=== PATIENT | male | born 1940 | race African-American/Black ===

== ENCOUNTER 2021-01-06 15:15 | Emergency (ER) | payer MEDICAID, OTHER ==
[~2021-01-06] VITALS: Ht 182.9 cm; Wt 89.4 kg
--- NOTE | 2021-01-06 16:03 | NUR ---
[id number], [facility] [place] PER EMS. SATTING 98% RA. RESPIRATION REGULAR AND UNLABORED. DENIES PAIN. WILL CONTINUE TO MONITOR THE PATIENT.
--- NOTE | 2021-01-06 16:07 | NUR ---
X-RAY TECH AT THE BEDSIDE
[2021-01-06 16:42] LABS: BASOPHILS # (AUTO) 0.1 K/uL (0.0-0.2); BASOPHILS % (AUTO) 0.8 % (0.0-2.0); EOSINOPHILS % (AUTO) 1.9 % (0.0-6.0); HEMATOCRIT 43 % (39-51); HEMOGLOBIN 13.8 g/dL (13.5-17.5); LYMPHOCYTES # (AUTO) 1.2 K/uL (0.8-4.8); MEAN CORPUSCULAR HGB CONC 32 g/dl (31.0-36.0); MEAN CORPUSCULAR VOLUME 99 fL (80-96); MONOCYTES # (AUTO) 0.4 K/uL (0.1-1.30); MONOCYTES % (AUTO) 6.3 % (2.0-12.0); NEUTROPHILS # (AUTO) 5.2 K/uL (1.8-8.9); PLATELET COUNT (AUTO) 245 K/uL (150-450); RED BLOOD CELL COUNT(AUTO) 4.39 MIL/uL (4.5-6.0)
[2021-01-06 16:52] LABS: CALCIUM, SERUM 9.2 mg/dL (8.5-10.1); CARBON DIOXIDE 19 mmol/L (21-32); CHLORIDE 105 mmol/L (98-107); CREATININE 2.6 mg/dL (0.6-1.3); GLUCOSE 95 mg/dL (74-106); POTASSIUM 4.1 mmol/L (3.5-5.1); SODIUM SERUM 140 mmol/L (136-145); UREA NITROGEN, BLOOD 21 mg/dL (7-18)
--- NOTE | 2021-01-06 17:01 | NUR ---
CALLED [facility] AND REQUESTED PT CLINICALS TO BE FAXED.
[2021-01-06 17:04] LABS: ALANINE AMINOTRANSFERASE 18 U/L (12-78); ALBUMIN 3.5 g/dL (3.4-5.0); ALKALINE PHOSPHATASE 89 U/L (46-116); ASPARTATE AMINOTRANSFERASE 17 U/L (15-37); BILIRUBIN,TOTAL 0.1 mg/dL (0.2-1.0); TOTAL PROTEIN, SERUM 7.5 g/dL (6.4-8.2)
--- NOTE | 2021-01-06 17:16 | NUR ---
THE PATIENT REFUSES VITAL SIGNS CHECK DESPITE EXPLAINING RISKS AND BENEFITS. DR SMITH AWARE.
[2021-01-06] MEDS ORDERED: ASPIRIN 81 MG TAB.CHEW PO ONE (17:30)
[2021-01-06] MEDS ORDERED: ASPIRIN 81 MG TAB.CHEW ONE (17:32)
--- NOTE | 2021-01-06 17:37 | NUR ---
ASPIRIN 162 MG PATIENT RESFUED DESPITE EXPLAINING RISKS AND BENEFITS. DR SMITH AWARE.
--- NOTE | 2021-01-06 17:58 | NUR ---
Sujatha turner in EDM - 01/06/21 at 1810 by DOUGIE CALLED [facility] AND IMAGING RESULTS TO [phone]
--- NOTE | 2021-01-06 18:12 | NUR ---
CALLED [facility] AND SET UP BLS TRANSPORT FOR PT TO [facility]. ETA [phone]
--- NOTE | 2021-01-06 19:19 | NUR ---
REPORT GIVEN TO NURSE PHAN
--- NOTE | 2021-01-06 19:41 | NUR ---
REPORT GIVEN TO EMS AT BEDSIDE
[2021-01-06 19:47] VITALS: BP 117/77
== END 2021-01-06 19:48 | disposition left against medical advice (07) ==
LOC: ER 17:24
DX: I21.4 Non-ST elevation (NSTEMI) myocardial infarction (principal); R07.89 Other chest pain; J45.909 Unspecified asthma, uncomplicated; Z88.0 Allergy status to penicillin
CPT/HCPCS: 36415; 71045-TC; 80048-TC; 80076-TC; 83880; 84484-TC; 85025-TC; 85730-TC

== ENCOUNTER 2021-12-30 23:21 | Inpatient (IN) | payer OTHER ==
[~2021-12-30] VITALS: Ht 182.9 cm; Wt 93.4 kg
--- NOTE | 2021-12-30 23:43 | NUR ---
SHAW FROM [place] [facility] [employer] APPETITE X2 DAYS AND HAND TREMORS. PT STATES HE IS AMBULATING AT BASELINE HOWEVER WITH WALKER. PT AWAKE AND ALERT X3 BASELINE MENTATION DENIES ANY PAIN. PLACED ON MONITOR AND V/S WNL.
--- NOTE | 2021-12-30 23:46 | NUR ---
GALLO FROM [facility]
[2021-12-30] MEDS ORDERED: ACETAMINOPHEN ES 500 MG TABLET ONE (23:49)
[2021-12-31] VITALS (7 sets, daily range): BP systolic 114–156; BP diastolic 60–102
[2021-12-31] MEDS ORDERED: ACETAMINOPHEN ES 500 MG TABLET PO ONE
--- NOTE | 2021-12-31 00:04 | NUR ---
SECURED IV ACCESS ON R HAND#20; PATENTM INTACT AND FLUSHING WELL
[2021-12-31 00:38] LABS: BASOPHILS % (AUTO) 0.6 % (0.0-2.0); EOSINOPHILS % (AUTO) 1.6 % (0.0-6.0); HEMATOCRIT 36 % (39-51); HEMOGLOBIN 11.7 g/dL (13.5-17.5); LYMPHOCYTES # (AUTO) 0.7 K/uL (0.8-4.8); LYMPHOCYTES % (AUTO) 15.7 % (20.0-44.0); MEAN CORPUSCULAR HGB CONC 32 g/dl (31.0-36.0); MEAN CORPUSCULAR VOLUME 93 fL (80-96); MONOCYTES # (AUTO) 0.3 K/uL (0.1-1.30); MONOCYTES % (AUTO) 6.3 % (2.0-12.0); NEUTROPHILS # (AUTO) 3.6 K/uL (1.8-8.9); NEUTROPHILS % (AUTO) 75.8 % (43.0-81.0); PLATELET COUNT (AUTO) 192 K/uL (150-450); RED BLOOD CELL COUNT(AUTO) 3.89 MIL/uL (4.5-6.0); WHITE BLOOD COUNT (AUTO) 4.7 K/uL (4.3-11.0)
[2021-12-31 00:58] LABS: ALANINE AMINOTRANSFERASE 24 U/L (12-78); ALBUMIN 3.2 g/dL (3.4-5.0); ALKALINE PHOSPHATASE 130 U/L (46-116); ASPARTATE AMINOTRANSFERASE 34 U/L (15-37); BILIRUBIN,DIRECT 0.3 mg/dL (0.0-0.2); BILIRUBIN,TOTAL 0.8 mg/dL (0.2-1.0); CARBON DIOXIDE 26 mmol/L (21-32); CHLORIDE 119 mmol/L (98-107); SODIUM SERUM 144 mmol/L (136-145); TOTAL PROTEIN, SERUM 7.1 g/dL (6.4-8.2); UREA NITROGEN, BLOOD 17 mg/dL (7-18)
--- NOTE | 2021-12-31 00:59 | NUR ---
TROP [id number]
[2021-12-31 01:10] LABS: MAGNESIUM 2.1 mg/dL (1.8-2.4)
--- NOTE | 2021-12-31 01:15 | NUR ---
COVID SWAB COLLECTED
[2021-12-31 01:24] LABS: THYROID STIMULATING HORMONE 2.314 uIU/mL (0.358-3.74)
[2021-12-31] MEDS ORDERED: ENOXAPARIN SODIUM 60 MG/0.6 ML DISP.SYRIN SQ ONE (01:27)
[2021-12-31] MEDS ORDERED: ENOXAPARIN SODIUM 100 MG/ML DISP.SYRIN SQ ONE (01:30)
[2021-12-31 01:51] LABS: GLUCOSE 119 mg/dL (74-106)
--- NOTE | 2021-12-31 02:44 | NUR ---
EPIC PAGED FOR PANEL
[2021-12-31] MEDS ORDERED: MAGNESIUM HYDROXIDE 30 ML UDC PO PRN (03:30)
[2021-12-31] MEDS ORDERED: MAG HYDROX/AL HYDROX/SIMETH 30 ML UDC PO PRN (03:30)
[2021-12-31] MEDS ORDERED: ACETAMINOPHEN 325 MG TABLET PO PRN (03:30)
[2021-12-31] MEDS ORDERED: Z GUARD REMEDY 4 OZ OINT TP PRN (03:30)
[2021-12-31] MEDS ORDERED: hydrALAZINE HCL IV 20 MG VIAL IV PRN (03:30)
[2021-12-31] MEDS ORDERED: ONDANSETRON HCL/PF 4 MG/2 ML VIAL IVP PRN (03:30)
[2021-12-31] MEDS ORDERED: IV NS 0.9% 1,000 ML IV PRN (03:30)
[2021-12-31] MEDS ORDERED: ALBUTEROL FS 2.5 MG/3 ML VIAL.NEB NEB PRN (03:30)
[2021-12-31] MEDS ORDERED: MORPHINE SULFATE INJ 2 MG/ML DISP.SYRIN IV PRN (03:30)
[2021-12-31] MEDS ORDERED: IPRATROPIUM NEB FS 0.5 MG/2.5 ML AMPUL.NEB NEB PRN (03:30)
[2021-12-31] MEDS ORDERED: ZOLPIDEM TARTRATE 5 MG TABLET PO PRN (03:30)
--- NOTE | 2021-12-31 04:07 | NUR ---
REPORT GIVEN TO ABBY VELEZ
--- NOTE | 2021-12-31 04:23 | NUR ---
PT TRANFERRED TO ROOM 306-2 PER [employer]S PROTOCOL. RN ROSIE AT BEDSIDE.
[2021-12-31 04:46] LABS: BILIRUBIN,URINE NEGATIVE (NEGATIVE); COLOR,URINE YELLOW (YELLOW); LEUKOCYTE ESTERASE ,URINE NEGATIVE (NEGATIVE); NITRITE, URINE NEGATIVE (NEGATIVE); PROTEIN,URINE NEGATIVE (NEGATIVE); UGLUCOSE NEGATIVE (NEGATIVE); UROBILINOGEN,URINE 0.2 EU/dL (0.2)
[2021-12-31 05:48] LABS: BASOPHILS % (AUTO) 0.7 % (0.0-2.0); HEMATOCRIT 36 % (39-51); HEMOGLOBIN 11.8 g/dL (13.5-17.5); LYMPHOCYTES # (AUTO) 0.9 K/uL (0.8-4.8); LYMPHOCYTES % (AUTO) 19.9 % (20.0-44.0); MEAN CORPUSCULAR HGB CONC 33 g/dl (31.0-36.0); MEAN CORPUSCULAR VOLUME 94 fL (80-96); MONOCYTES # (AUTO) 0.3 K/uL (0.1-1.30); NEUTROPHILS # (AUTO) 3.1 K/uL (1.8-8.9); NEUTROPHILS % (AUTO) 71.4 % (43.0-81.0); PLATELET COUNT (AUTO) 174 K/uL (150-450); RED BLOOD CELL COUNT(AUTO) 3.84 MIL/uL (4.5-6.0); WHITE BLOOD COUNT (AUTO) 4.3 K/uL (4.3-11.0)
[2021-12-31 05:56] LABS: BACTERIA,URINE None seen /HPF (None Seen); SQUAMOUS EPITHELIAL CELL,UR Few /HPF (None Seen); WBC,URINE 0-2 /HPF (0-3)
--- NOTE | 2021-12-31 06:14 | NUR ---
ADMITTED PATIENT FROM ED, DX NON-STEMI, ALERT/ORIENTED X4, ROOM AIR, NO COMPLAIN OF CHEST PAIN, DYSPNEA ON EXERTION. SKIN INTACT, BLE EVELIA IN COLOR, DENIES NUMBNESS, NO EDEMA, PALPABLE PULSES. UNSTEADY IN GAIT, AMBULATES WITH STAND BY ASSIST. REPORTED TO 51 YEARS SMOKING YEARS, NO PLAN OF QUITTING, SMOKES LESS RECENTLY. DRINKS VODKA DAILY AND AT BEDTIME. CT HEAD NEGATIVE, CHEST XRAY NEGATIVE. NS AT 75 ML/HR. CARDIAC CONSULT WITH DR. SCOTT
[2021-12-31 08:08] LABS: CHOLESTEROL 133 mg/dL (<200); HDL CHOLESTEROL 102 mg/dL (40-60); LDL 28 mg/dL (0-99); TRIGLYCERIDES 46 mg/dL (30-150)
[2021-12-31] MEDS: ASPIRIN 81 MG TAB.CHEW PO SCH (08:41)
[2021-12-31 08:44] LABS: CARBON DIOXIDE 25 mmol/L (21-32); CREATININE 1.9 mg/dL (0.6-1.3); GLUCOSE 121 mg/dL (74-106); MAGNESIUM 2.1 mg/dL (1.8-2.4); PHOSPHORUS 3.2 mg/dL (2.5-4.9); POTASSIUM 4.7 mmol/L (3.5-5.1); SODIUM SERUM 144 mmol/L (136-145); UREA NITROGEN, BLOOD 16 mg/dL (7-18)
[2021-12-31 08:51] LABS: IRON, SERUM 172 ug/dl (50-175); TOTAL IRON BINDING CAPACITY 187 ug/dl (250-450)
[2021-12-31] MEDS ORDERED: PANTOPRAZOLE 40 MG VIAL IV SCH (09:00)
[2021-12-31] MEDS ORDERED: ENOXAPARIN SODIUM 40 MG/0.4 ML DISP.SYRIN SQ ONE (09:00)
[2021-12-31] MEDS ORDERED: LORAZEPAM 1 MG TABLET PO PRN (09:30)
[2021-12-31] MEDS: CHLORDIAZEPOXIDE HCL 25 MG CAPSULE PO SCH ×3 (10:46→20:40)
--- NOTE | 2021-12-31 19:00 | NUR ---
PACK WORKER SUPERVISOR CLOSING NOTE PATIENT LAYING IN BED, A/O X 3, ABLE TO MAKE NEEDS KNOWN, TOLERATING WELL ON ROOM AIR WITH NO S/S RESPIRATORY DISTRESS. NO COMPLAINTS OF PAIN OR DISCOMFORT AT THIS TIME. R HAND # 20 SL CLEAN, INTACT, AND INFUSING NS @ 75 ML/HR. SAFETY MEASURES IN PLACE: BED IN LOWEST LOCKED POSITION, SIDE RAILS UP X 2, CALL LIGHT WITHIN REACH. WILL CONTINUE TO MONITOR.
--- NOTE | 2021-12-31 19:31 | NUR ---
RN OPENING NOTE; RECEIVED PT IN AAOX3 ABLE TO MAKE NEEDS KNOWN,JAYDA WELL ON RM AIR,NO SIGN SOB/DISTRESS NOTED,BREATHING EVEN AND UNLABORE,NO COMPLAINE OF PAIN/DISCOMFORT AT THIS TIME,IV ACCESS RT HAND 20G WITH NS @75ML/HR JAYDA WELL,SAFETY MEASURE IN PLACE,CALL LIGHT WITHIN REACH,WILL CONTINUE TO MONITOR.
[2021-12-31] MEDS ORDERED: ENOXAPARIN SODIUM 100 MG/ML DISP.SYRIN SQ SCH (21:00)
[2022-01-01] VITALS: BP 148/78
[2022-01-01] MEDS: CHLORDIAZEPOXIDE HCL 25 MG CAPSULE PO SCH (04:11)
[2022-01-01 06:15] LABS: BASOPHILS % (AUTO) 0.4 % (0.0-2.0); EOSINOPHILS % (AUTO) 4.7 % (0.0-6.0); HEMATOCRIT 31 % (39-51); HEMOGLOBIN 10.3 g/dL (13.5-17.5); LYMPHOCYTES # (AUTO) 0.8 K/uL (0.8-4.8); LYMPHOCYTES % (AUTO) 22.1 % (20.0-44.0); MEAN CORPUSCULAR HGB CONC 33 g/dl (31.0-36.0); MEAN CORPUSCULAR VOLUME 94 fL (80-96); MONOCYTES # (AUTO) 0.3 K/uL (0.1-1.30); MONOCYTES % (AUTO) 7.3 % (2.0-12.0); NEUTROPHILS # (AUTO) 2.5 K/uL (1.8-8.9); NEUTROPHILS % (AUTO) 65.5 % (43.0-81.0); PLATELET COUNT (AUTO) 146 K/uL (150-450); RED BLOOD CELL COUNT(AUTO) 3.34 MIL/uL (4.5-6.0); WHITE BLOOD COUNT (AUTO) 3.8 K/uL (4.3-11.0)
--- NOTE | 2022-01-01 06:24 | NUR ---
RN CLOSING NOTE; PT IN BED AAOX3 ABLE TO MAKE NEEDS KNOWN,JAYDA WELL ON RM AIR,NO SIGN SOB/DISTRESS NOTED,BREATHING EVEN AND UNLABORE,NO COMPLAINE OF PAIN/DISCOMFORT DURING SHIFT,DUE MEDS GIVEN ORDER,ALL NEEDS ATTENDED,IV ACCESS RT HAND 20G WITH NS @75ML/HR JAYDA WELL,SAFETY MEASURE IN PLACE,CALL LIGHT WITHIN REACH,WILL ENDORSED TO NEXT SHIFT.
[2022-01-01 06:38] LABS: CALCIUM, SERUM 8.2 mg/dL (8.5-10.1); CARBON DIOXIDE 26 mmol/L (21-32); CHLORIDE 109 mmol/L (98-107); CREATININE 1.8 mg/dL (0.6-1.3); GLUCOSE 97 mg/dL (74-106); MAGNESIUM 1.8 mg/dL (1.8-2.4); POTASSIUM 4.3 mmol/L (3.5-5.1); SODIUM SERUM 141 mmol/L (136-145); UREA NITROGEN, BLOOD 15 mg/dL (7-18)
--- NOTE | 2022-01-01 07:20 | NUR ---
RN OPENING NOTE; RECEIVED PT IN AOX3 ABLE TO MAKE NEEDS KNOWN,TOLERATING WELL ON RM AIR,NO SIGN SOB/DISTRESS NOTED,BREATHING EVEN AND UNLABORED,NO COMPLAINED OF PAIN/DISCOMFORT AT THIS TIME,IV ACCESS RT HAND 20G WITH NS @75ML/HR PATENT AND INTACT,SAFETY MEASURE IN PLACE,CALL LIGHT WITHIN REACH,WILL CONTINUE TO MONITOR.
[2022-01-01 08:00] VITALS: BP 159/82
[2022-01-01] MEDS ORDERED: MULT-447 PO (08:32)
[2022-01-01] MEDS ORDERED: FOLI0.4T6 PO (08:32)
[2022-01-01] MEDS ORDERED: CHOL100043 PO (08:32)
[2022-01-01] MEDS ORDERED: HYDR28OI2 TP (08:32)
[2022-01-01] MEDS ORDERED: THIA100T74 PO (08:32)
[2022-01-01] MEDS ORDERED: ALBU8.5H8 IH (08:32)
[2022-01-01] MEDS ORDERED: LIDO700A30 TP (08:32)
[2022-01-01] MEDS ORDERED: FLEC100T2 PO (08:32)
[2022-01-01] MEDS ORDERED: GABA-532 PO (08:32)
[2022-01-01] MEDS ORDERED: TAMS-12 PO (08:32)
[2022-01-01] MEDS ORDERED: ACET-868 PO (08:32)
[2022-01-01] MEDS ORDERED: NALT50TA PO (08:32)
[2022-01-01] MEDS ORDERED: ASPI-1169 PO (08:32)
[2022-01-01] MEDS ORDERED: CARV6.252 PO (08:32)
[2022-01-01] MEDS ORDERED: SENN-261 PO (08:32)
[2022-01-01] MEDS ORDERED: THIAMINE HCL 100 MG TABLET PO SCH (09:00)
[2022-01-01] MEDS ORDERED: FOLIC ACID 1 MG TABLET PO SCH (09:00)
[2022-01-01] MEDS ORDERED: CARVEDILOL 3.125 MG TABLET PO SCH (09:00)
[2022-01-01] MEDS ORDERED: NITROGLYCERIN PACKET 1 GM PACKET TD SCH (09:00)
[2022-01-01] MEDS ORDERED: PANTOPRAZOLE 40 MG TABLET.DR PO SCH (09:00)
[2022-01-01] MEDS ORDERED: CARV3.122 PO (10:00)
[2022-01-01] MEDS: ASPIRIN 81 MG TAB.CHEW PO SCH (10:02)
[2022-01-01 12:00] VITALS: BP 119/77
--- NOTE | 2022-01-01 16:00 | NUR ---
DISCHARGED NOTE PATIENT DISCHARGED TO SNF IN STABLE CONDITION. VITALS TAKEN,RECORDED AND STABLE. REPORT WERE GIVEN TO [facility]. IV LINED REMOVED ASEPTICALLY. ALL BELONGINGS GIVEN TO PATIENT. LEFT UNIT AROUND [id number].
[2022-01-01] MEDS ORDERED: ENOXAPARIN SODIUM 40 MG/0.4 ML DISP.SYRIN SQ SCH (21:00)
== END 2022-01-01 15:30 | DRG 422 ==
LOC: ER 23:32 → TELE 12-31 03:57
PROVIDERS: ADMIT Internal Medicine; ATTEND Internal Medicine
DX: E86.0 Dehydration (principal); E86.1 Hypovolemia; N17.0 Acute kidney failure with tubular necrosis; I21.A1 Myocardial infarction type 2; E43 Unspecified severe protein-calorie malnutrition; D63.8 Anemia in other chronic diseases classified elsewhere; E88.09 Other disorders of plasma-protein metabolism, not elsewhere classified; G30.9 Alzheimer's disease, unspecified; F02.80 Dementia in other diseases classified elsewhere, unspecified severity, without behavioral disturbance, psychotic disturbance, mood disturbance, and anxiety; F10.239 Alcohol dependence with withdrawal, unspecified; N18.9 Chronic kidney disease, unspecified; I25.10 Atherosclerotic heart disease of native coronary artery without angina pectoris; I12.9 Hypertensive chronic kidney disease with stage 1 through stage 4 chronic kidney disease, or unspecified chronic kidney disease; I45.10 Unspecified right bundle-branch block; J44.9 Chronic obstructive pulmonary disease, unspecified; N28.1 Cyst of kidney, acquired; N40.0 Benign prostatic hyperplasia without lower urinary tract symptoms; Z86.73 Personal history of transient ischemic attack (TIA), and cerebral infarction without residual deficits; Z88.0 Allergy status to penicillin
CPT/HCPCS: 36415; 70450-TC; 71045-TC; 76770-TC; 80048-TC; 80061-TC; 80076-TC; 81001; 82140-TC; 83540-TC; 83735-TC; 83880; 84100-TC; 84300-TC; 84439-TC; 84443-TC; 84484-TC; 85025-TC; 87081-TC; 93307-TC; 97116-TC; 97530-TC; C9113; C9803; G0378; J1650; J7030

== ENCOUNTER 2023-05-27 18:47 | Inpatient (IN) | payer MEDICARE, OTHER ==
[~2023-05-27] VITALS: Ht 182.9 cm; Wt 93.0 kg
[~2023-05-27 18:47] MED LIST: ACET-868 PO; ALBU8.5H8 IH; ASPI-1169 PO; CARV3.122 PO; CARV6.252 PO; CHOL100043 PO; FLEC100T2 PO; FOLI0.4T6 PO; GABA-532 PO; HYDR28OI2 TP; LIDO700A30 TP; MULT-447 PO; NALT50TA PO; SENN-261 PO; TAMS-12 PO; THIA100T74 PO
[2023-05-27 20:45] VITALS: BP 133/74; TEMP 98.9; O2SAT 100
[2023-05-27] MEDS ORDERED: ONDANSETRON HCL/PF 4 MG/2 ML VIAL IVP PRN (21:00)
[2023-05-27] MEDS ORDERED: MAG HYDROX/AL HYDROX/SIMETH 30 ML UDC PO PRN (21:00)
[2023-05-27] MEDS ORDERED: MAGNESIUM HYDROXIDE 30 ML UDC PO PRN (21:00)
[2023-05-27] MEDS: ENOXAPARIN SODIUM 40 MG/0.4 ML DISP.SYRIN SQ SCH (21:56)
[2023-05-27] MEDS: IV NS 0.9% 1,000 ML IV PRN (21:57)
[2023-05-27] MEDS ORDERED: ALBUTEROL SULFATE 8 GM HFA.AER.AD IH PRN (23:00)
[2023-05-27] MEDS ORDERED: HYDROCODONE/APAP 5/325MG TABLET PO PRN (23:00)
[2023-05-27] MEDS ORDERED: IPRATROPIUM BROMIDE 14 GM INHALER (or 12.9 GM) IH PRN (23:00)
[2023-05-28] VITALS: BP 125/81; TEMP 98; O2SAT 100
[2023-05-28 04:00] VITALS: BP 135/98; TEMP 98
[2023-05-28 07:16] LABS: BASOPHILS % (AUTO) 0.5 % (0.0-2.0); EOSINOPHILS # (AUTO) 0.3 K/uL (0.0-0.7); HEMATOCRIT 35 % (39-51); HEMOGLOBIN 11.1 g/dL (13.5-17.5); LYMPHOCYTES # (AUTO) 1.1 K/uL (0.8-4.8); LYMPHOCYTES % (AUTO) 19.8 % (20.0-44.0); MEAN CORPUSCULAR HEMOGLOBIN 26 PG (26.0-33.0); MEAN CORPUSCULAR HGB CONC 32 g/dl (31.0-36.0); MEAN CORPUSCULAR VOLUME 80 fL (80-96); MONOCYTES # (AUTO) 0.3 K/uL (0.1-1.30); MONOCYTES % (AUTO) 5.7 % (2.0-12.0); NEUTROPHILS # (AUTO) 3.9 K/uL (1.8-8.9); PLATELET COUNT (AUTO) 207 K/uL (150-450); RED BLOOD CELL COUNT(AUTO) 4.36 MIL/uL (4.5-6.0); RED CELL DISTRIBUTION WIDTH 18.6 % (11.5-15.0); WHITE BLOOD COUNT (AUTO) 5.6 K/uL (4.3-11.0)
[2023-05-28 07:34] LABS: CALCIUM, SERUM 9.1 mg/dL (8.5-10.1); CARBON DIOXIDE 23 mmol/L (21-32); CHLORIDE 108 mmol/L (98-107); CREATININE 1.6 mg/dL (0.6-1.3); GLUCOSE 89 mg/dL (74-106); LIPASE 60 U/L (16-77); MAGNESIUM 1.8 mg/dL (1.8-2.4); PHOSPHORUS 3.5 mg/dL (2.5-4.9); POTASSIUM 4.5 mmol/L (3.5-5.1); SODIUM SERUM 139 mmol/L (136-145); UREA NITROGEN, BLOOD 17 mg/dL (7-18)
[2023-05-28 07:44] LABS: CHOLESTEROL 87 mg/dL (<200); HDL CHOLESTEROL 51 mg/dL (40-60); LDL 26 mg/dL (0-99); TRIGLYCERIDES 70 mg/dL (30-150)
[2023-05-28 08:00] VITALS: BP 143/84; TEMP 99; O2SAT 100
[2023-05-28] MEDS: TAMSULOSIN 0.4 MG CAP.SR.24H PO SCH (08:13)
[2023-05-28] MEDS: FLECAINIDE ACETATE (100 MG) 100 MG TABLET PO SCH (08:13)
[2023-05-28] MEDS: FOLIC ACID 1 MG TABLET PO SCH (08:13)
[2023-05-28] MEDS: MULTIVIT W/MINERALS 1 TAB TABLET PO SCH (08:13)
[2023-05-28] MEDS: SENNOSIDES 8.6 MG TABLET PO SCH (08:14)
[2023-05-28] MEDS: GABAPENTIN 300 MG CAPSULE PO SCH (08:14)
[2023-05-28] MEDS: CARVEDILOL 3.125 MG TABLET PO SCH (08:14)
[2023-05-28] MEDS: ASPIRIN 81 MG TAB.CHEW PO SCH (08:14)
[2023-05-28] MEDS: THIAMINE HCL 100 MG TABLET PO SCH (08:15)
[2023-05-28] MEDS: LIDOCAINE 5% (PATCH) 1 EA PATCH TP SCH (08:16)
[2023-05-28] MEDS ORDERED: Medication Not On Formulary EA (Naltrexone Hcl 50 MG) PO SCH (09:00)
[2023-05-28] MEDS ORDERED: ALBUTEROL FS 2.5 MG/3 ML VIAL.NEB NEB PRN (09:30)
[2023-05-28] MEDS ORDERED: IPRATROPIUM NEB FS 0.5 MG/2.5 ML AMPUL.NEB NEB PRN (09:30)
[2023-05-28] MEDS ORDERED: DILT-32 PO (09:49)
[2023-05-28] MEDS ORDERED: ISOS60TA72 PO (09:49)
[2023-05-28] MEDS ORDERED: NALO4SPR NS (09:49)
[2023-05-28] MEDS ORDERED: ATOR80TA PO (09:49)
[2023-05-28] MEDS ORDERED: SODI650T PO (09:49)
[2023-05-28] MEDS ORDERED: PANT40TA2 PO (09:49)
[2023-05-28] MEDS ORDERED: MAGN400T52 PO (09:49)
[2023-05-28] MEDS ORDERED: MELA3TAB41 PO (09:49)
[2023-05-28] MEDS ORDERED: POLY17PO4 PO (09:49)
[2023-05-28 12:00] VITALS: BP 135/90; TEMP 99; O2SAT 99
[2023-05-28] MEDS: CHOLECALCIFEROL 1,000 UNIT TABLET (VIT D3) PO SCH (15:39)
[2023-05-28 16:00] VITALS: BP 139/81; TEMP 97.9; O2SAT 94
[2023-05-28 20:00] VITALS: BP 143/78; TEMP 98.6; O2SAT 97
[2023-05-29] VITALS: BP 143/74; TEMP 98.4; O2SAT 96
[2023-05-29 04:00] VITALS: BP 149/71; TEMP 98.2; O2SAT 96
[2023-05-29 08:00] VITALS: BP 148/88; TEMP 97.5; O2SAT 96
[2023-05-29] MEDS: ACETAMINOPHEN 325 MG TABLET PO PRN (08:08)
[2023-05-29 08:12] LABS: CREATININE, URINE 105.3 MG/DL (30.0-125.0); URINE TOTAL PROTEIN 18.2 mg/dL (0-11.9)
[2023-05-29 08:13] VITALS: BP 156/95
[2023-05-29 09:15] LABS: APPEARANCE,URINE CLEAR (CLEAR); BILIRUBIN,URINE NEGATIVE (NEGATIVE); BLOOD, URINE NEGATIVE Ery/uL (NEGATIVE); COLOR,URINE YELLOW (YELLOW); KETONES,URINE NEGATIVE (NEGATIVE); LEUKOCYTE ESTERASE ,URINE NEGATIVE (NEGATIVE); NITRITE, URINE NEGATIVE (NEGATIVE); PROTEIN,URINE NEGATIVE (NEGATIVE); UGLUCOSE NEGATIVE (NEGATIVE); UROBILINOGEN,URINE 0.2 EU/dL (0.2)
[2023-05-29 10:29] LABS: EOSINOPHIL,URINE None Seen
[2023-05-29] MEDS: ENSURE CLEAR 237 ML LIQUID (MIX BERRY) PO SCH (13:00)
== END 2023-05-29 16:15 | DRG 439 ==
LOC: TELE 20:28
PROVIDERS: ADMIT Nurse Practitioner Acute Care; ATTEND Nurse Practitioner Acute Care
DX: K85.90 Acute pancreatitis without necrosis or infection, unspecified (principal); K86.2 Cyst of pancreas; N40.0 Benign prostatic hyperplasia without lower urinary tract symptoms; I12.9 Hypertensive chronic kidney disease with stage 1 through stage 4 chronic kidney disease, or unspecified chronic kidney disease; F02.80 Dementia in other diseases classified elsewhere, unspecified severity, without behavioral disturbance, psychotic disturbance, mood disturbance, and anxiety; G30.9 Alzheimer's disease, unspecified; N18.32 Chronic kidney disease, stage 3b; Z86.79 Personal history of other diseases of the circulatory system; K76.0 Fatty (change of) liver, not elsewhere classified; Z87.19 Personal history of other diseases of the digestive system; I25.10 Atherosclerotic heart disease of native coronary artery without angina pectoris; I25.2 Old myocardial infarction; E78.5 Hyperlipidemia, unspecified; Z79.82 Long term (current) use of aspirin; Z79.51 Long term (current) use of inhaled steroids; Z79.899 Other long term (current) drug therapy; D64.9 Anemia, unspecified; K21.00 Gastro-esophageal reflux disease with esophagitis, without bleeding; R80.9 Proteinuria, unspecified; K44.9 Diaphragmatic hernia without obstruction or gangrene; M89.8X9 Other specified disorders of bone, unspecified site; E87.6 Hypokalemia; Z88.0 Allergy status to penicillin; K86.1 Other chronic pancreatitis
CPT/HCPCS: 36415; 80048-TC; 80061-TC; 82570-TC; 83690-TC; 83735-TC; 84100-TC; 84300-TC; 85025-TC; 87081-TC; 97112-TC; 97116-TC; 97530-TC; A4223; G0378; J1650; J7030